=== PATIENT | male | born 1945 | race Caucasian/White ===

== ENCOUNTER 2018-01-09 07:35 | Outpatient (CLI) | payer OTHER ==
[~2018-01-09 07:35] MED LIST: CEFADROXIL500 MG PO; GLIMEPIRIDE2 MG; [UNRECOGNIZED DRUG - OTHER]; [UNRECOGNIZED DRUG - OTHER]; [UNRECOGNIZED DRUG - OTHER]
== END 2018-01-09 07:52 | disposition home or self-care (01) ==
LOC: NUCLEAR 07:35
DX: I20.0 Unstable angina (principal); E11.8 Type 2 diabetes mellitus with unspecified complications; E78.2 Mixed hyperlipidemia; I11.9 Hypertensive heart disease without heart failure
CPT/HCPCS: 78452; 93017; A9500

== ENCOUNTER 2018-07-01 14:56 | Outpatient (CLI) | payer OTHER | END 2018-07-01 15:02 | disposition home or self-care (01) | LOC: RAD 501 14:56 | DX: M25.571 Pain in right ankle and joints of right foot (principal); M79.621 Pain in right upper arm ==

== ENCOUNTER 2018-07-02 10:09 | Outpatient (CLI) | payer OTHER | END 2018-07-02 10:21 | disposition home or self-care (01) | LOC: LAB 10:09 | DX: E88.89 Other specified metabolic disorders (principal); E56.1 Deficiency of vitamin K; M81.8 Other osteoporosis without current pathological fracture; E55.9 Vitamin D deficiency, unspecified; M85.88 Other specified disorders of bone density and structure, other site ==

== ENCOUNTER 2018-07-03 07:19 | Outpatient (CLI) | payer OTHER | END 2018-07-03 13:20 | disposition home or self-care (01) | LOC: MRI 07:19 | DX: M25.511 Pain in right shoulder (principal) | CPT/HCPCS: 73221 ==

== ENCOUNTER 2018-07-10 11:31 | Outpatient (CLI) | payer OTHER | END 2018-07-10 11:34 | disposition home or self-care (01) | LOC: TOM 11:31 | DX: J42 Unspecified chronic bronchitis (principal); J45.41 Moderate persistent asthma with (acute) exacerbation; M25.511 Pain in right shoulder ==

== ENCOUNTER 2018-07-23 11:47 | Outpatient (CLI) | payer OTHER | END 2018-07-23 14:30 | disposition home or self-care (01) | LOC: TOM 11:47 | DX: J90 Pleural effusion, not elsewhere classified (principal); J47.9 Bronchiectasis, uncomplicated; I10 Essential (primary) hypertension; J44.1 Chronic obstructive pulmonary disease with (acute) exacerbation ==